=== PATIENT | male | born 1980 | race Caucasian/White ===

== ENCOUNTER → 2019-03-01 | Outpatient (CLI) | payer OTHER ==
[~2019-03-01] MED LIST: ASPI325T80 PO; CALC-79 PO; CHOL100012 PO; FILG300D2 SQ; LISI5TAB7 PO; MULT-257 PO; MYCO250C4 PO; OMEP-110 PO; PRAV20TA PO; SODI650T PO; TACR0.5C4 PO; TACR1CAP2 PO; TACR1CAP4 PO; VALG450T PO; lidocaine EXT
== END | disposition home or self-care (01) ==
LOC: CFH 09:25
PROVIDERS: ATTEND Internal Medicine Nephrology
DX: R10.32 Left lower quadrant pain (principal); Z94.0 Kidney transplant status
CPT/HCPCS: 74176